=== PATIENT | female | born 1960 | race Caucasian/White ===

== ENCOUNTER 2019-03-08 04:31 | Emergency (ER) | payer OTHER, MEDICAID, SELFPAY ==
[2019-03-08 04:38] VITALS: BP 147/71; PULSE 95; RESP 16; TEMP 36.7; O2SAT 97
--- NOTE | 2019-03-08 04:41 | ED_ITS ---
HPI - Extremity Problem General Chief complaint: Extremity Problem,Nontraumatic Stated complaint: WRIST PAIN Time Seen by Provider: 03/08/19 04:41 Source: patient Mode of arrival: ambulatory Limitations: no limitations History of Present Illness HPI Narrative: 58-year-old female here for evaluation of right wrist pain and swelling. Patient states yesterday she was doing some housework. Throughout the day started having pain in the right wrist. Worsened last evening. Has been icing it since then. Has not taken any anti-inflammatories. States she has pain on the back of her wrist. Also swelling around the wrist. Reports no specific trauma. Did not fall. No history of gout. No fevers. No tingling in her hand or fingers Related Data Allergies Allergy/AdvReac Type Severity Reaction Status Date / Time No Known Drug Allergies Allergy Verified 03/08/19 04:37 Review of Systems Constitutional Denies fever(s) Musculoskeletal Denies tingling Comments: Right wrist pain and swelling Integumentary/Breasts Denies new lesions and Denies rash Neurologic Denies tingling and Denies paresthesias Hematologic/Lymphatic Denies easy bleeding and Denies easy bruising [facility] Surgical History No pertinent past surgical history (Acute) Social History lives independently: Yes Exam Initial Vital Signs Initial Vital Signs: Vital Signs Temperature 98.0 F 03/08/19 04:38 Pulse Rate 95 H 03/08/19 04:38 Respiratory Rate 16 03/08/19 04:38 Blood Pressure 147/71 H 03/08/19 04:38 Pulse Oximetry 97 03/08/19 04:38 Const General: cooperative, comfortable, well developed, well groomed and No acute distress Orientation: alert and awake Cardio Pulses: radial pulses present on the right Skin Lesions: no lesions Rashes: no rashes Neuro Sensory Exam: no sensory deficits noted Extrem Other: Right elbow unremarkable. Right forearm unremarkable. Patient able to supinate but has some discomfort around the wrist. Pronation is not an issue for the patient. Right fingers unremarkable. Tenderness to palpation along the extensor tendons of the right thumb. Also tenderness along the dorsum of the wrist. Swelling along the radial and ulnar aspect of the wrist. Procedures Orthopedic Splinting/Casting Injury #1: Side: right Upper Extremity Injury Location: wrist Upper Extremity Immobilizer: wrist splint Post splinting neuro exam: no change Post splinting vascular exam: no change Placed by: Nursing Course Orders Ordered: Discontinued Medications Ibuprofen (Advil) 800 mg PO NOW ONE Stop: 03/08/19 04:53 Vital Signs - 8 hr 03/08/19 04:38 Temperature 98.0 F Pulse Rate 95 H Respiratory Rate 16 Blood Pressure 147/71 H Pulse Oximetry 97 MDM - Extremity (Nontraumatic) MDM Narrative Medical decision making narrative: Patient without a specific trauma. Low suspicion for fracture. Will hold on radiologic studies. Her symptoms are also not consistent with cellulitis. Low suspicion for septic joint. Never had a history of gout in the past. Her exam is also not consistent with gout. I suspect this is a flare of arthritis. Will place her in a removable wrist splint. I did discuss the use of anti-inflammatories and icing. Given return precautions and follow-up instructions. She expressed understanding and agreement with plan. Discharge Plan Departure Patient Disposition: Home Clinical Impression: Arthritis Instructions: DI for Arthritis Activity Restrictions/Additional Instructions: Use the wrist splint as needed for comfort. Also recommend you start taking any anti-inflammatories such as Motrin or Naprosyn as directed with some food. Ice your wrist as well. Return to the emergency department for any new or worsening symptoms Referrals: Mary Sahni MD [Primary Care Provider] -
[2019-03-08] MEDS: IBUPROFEN 400 MG TABLET PO (05:05)
== END 2019-03-08 05:13 | disposition home or self-care (01) ==
PROVIDERS: Emergency Provider Emergency Medicine; PCP Family Medicine
DX: M19.031 Primary osteoarthritis, right wrist (principal)
CPT/HCPCS: 99282